=== PATIENT | female | born 1945 | race Caucasian/White ===

== ENCOUNTER 2017-04-24 08:40 | Emergency (ER) | payer MEDICARE ==
[~2017-04-24] VITALS: Ht 162.6 cm; Wt 76.2 kg
--- NOTE | 2017-04-24 08:48 | NUR ---
PATIENT WAS SEEN BY DR ASH FOR C/O VISION CHANGES AND COMPLAINTS OF BALANCE CHANGES. [place] AND SHE IS HERE BECAUSE "MY DAUGHTER JUST ". PLACED HER ON A MONITOR.
[2017-04-24] MEDS ORDERED: LISI10TA5 PO (08:58)
[2017-04-24] MEDS ORDERED: UBID100C13 PO (08:59)
[2017-04-24] MEDS ORDERED: ASPI81TA31 PO (08:59)
[2017-04-24] MEDS ORDERED: CARB-93 PO (08:59)
[2017-04-24] MEDS ORDERED: CHOL20004 PO (08:59)
[2017-04-24] MEDS ORDERED: METF10002 PO (08:59)
[2017-04-24] MEDS ORDERED: LEVO88TA5 PO (08:59)
[2017-04-24 09:10] LABS: CARBON DIOXIDE 25 mmol/L (21-32); CHLORIDE 104 mmol/L (98-107); CREATININE 0.6 mg/dL (0.6-1.3); GLUCOSE 146 mg/dL (74-106); POTASSIUM 3.7 mmol/L (3.5-5.1); UREA NITROGEN, BLOOD 16 mg/dL (7-18)
[2017-04-24 09:14] LABS: BASOPHILS % (AUTO) 0.9 % (0.0-2.0); EOSINOPHILS # (AUTO) 0.1 K/uL (0.0-0.7); EOSINOPHILS % (AUTO) 2.1 % (0.0-7.0); HEMATOCRIT 36.8 % (37-47); HEMOGLOBIN 12.4 G/DL (12.0-16.0); MEAN CORPUSCULAR HEMOGLOBIN 29.9 UUG (27.0-31.0); MEAN CORPUSCULAR HGB CONC 34 g/dL (32.0-37.0); MEAN CORPUSCULAR VOLUME 88.5 FL (81.0-99.0); MONOCYTES # (AUTO) 0.5 K/UL (0.1-1.30); MONOCYTES % (AUTO) 10.6 % (0.0-11.0); NEUTROPHILS # (AUTO) 2.4 K/UL (1.8-8.9); NEUTROPHILS % (AUTO) 46.4 % (38.5-71.5); PLATELET COUNT (AUTO) 175 K/UL (150-450); RED BLOOD CELL COUNT(AUTO) 4.16 MIL/UL (4.2-5.4)
--- NOTE | 2017-04-24 09:32 | NUR ---
AWAITING TEST RESULTS. PT IS AWAKE AND ALERT WITH NO NEW COMPLAINTS.
--- NOTE | 2017-04-24 10:13 | NUR ---
ALL COPIES OF LABS AN IMAGING GIVEN TO PATIENT. DC AND FOLLOW UP INSTRUCTIONS GIVEN AND EXPLAINED TO PT AND FAMILY WHO STATE THEY UNDERSTAND ALL INSTRUCTIONS.
== END 2017-04-24 10:16 | disposition home or self-care (01) ==
LOC: ER 08:40
DX: I63.9 Cerebral infarction, unspecified (principal); I10 Essential (primary) hypertension; E03.9 Hypothyroidism, unspecified; E11.9 Type 2 diabetes mellitus without complications; G20 Parkinson's disease; Z79.82 Long term (current) use of aspirin
CPT/HCPCS: 36415; 70450; 71010; 80048; 84484; 85025; 85730; 93005; 99285; A4663; 70030-TC